=== PATIENT | female | born 1985 | race Caucasian/White ===

== ENCOUNTER → 2016-04-27 | Outpatient (CLI) | payer BC, OTHER ==
[~2016-04-27] MED LIST: IRON PO; MTR600X PO; MULT-506 PO; OXYC5TAB PO
== END | disposition home or self-care (01) ==
LOC: C.PAPS 14:45
PROVIDERS: ATTEND Obstetrics & Gynecology
DX: Z01.419 Encounter for gynecological examination (general) (routine) without abnormal findings (principal); N87.1 Moderate cervical dysplasia

== ENCOUNTER → 2017-05-05 | Outpatient (CLI) | payer OTHER | END | disposition home or self-care (01) | LOC: C.PAPS 15:03 | PROVIDERS: ATTEND Obstetrics & Gynecology | DX: Z01.419 Encounter for gynecological examination (general) (routine) without abnormal findings (principal) ==

== ENCOUNTER 2019-01-18 06:46 | Inpatient (IN) ==
--- NOTE | 2019-01-17 09:35 | Anesthesiology Consultation ---
Date of Service January 17, 2019 Assessment & Plan (1) Encounter for pre-operative examination: Per OB, no preop labs to be done at [facility]- ordered for AM DOS* Chart Review Chart Review: Acceptable Risk for Surgery (pending preop labs AM DOS) and Patient seen in Pre Admission Testing Teaching & Discussion Pre-Anesthesia Teaching/Discussion Notes: Instructed NPO after midnight before surgery,except medications with 15 cc of water. Medication instructions provided according to the [facility] guidelines. History Surgery Operation Date: 01/18/19 07:30 Proposed Procedures p Section in LD - Pearl Villareal MD, FACOG Height/Weight Height: 5 ft 6 in Weight: 82 kg Allergies Allergy/AdvReac Type Severity Reaction Status Date / Time Influenza Virus Vaccines Allergy Severe ANAPHYLAXIS Verified 01/17/19 08:48 Medications Home Medications Medication Instructions Recorded Confirmed Last Taken agoaxsmt-rae-Aa-FA 1 tab PO DAILY 11/14/18 01/17/19 1 Day Ago ~12/30/18 Past Medical History Medical History History of ovarian cyst Temporomandibular joint disorder rare locking Thyroid cyst under surveillance Exercise / Class Metabolic Activity III < 4 Walking/Shop/Light housework Past Family History Family History Other Thyroid disease Past Surgical History Surgical History History of adenoidectomy History of closed hip dislocation s/p manipulation under anesthesia History of low transverse section x2 S/P wisdom tooth extraction Status post colposcopy with cervical biopsy and ECC-8 years ago Status post myringotomy with tube placement of both ears Past Anesthesia History No Family Hx of Anesthesia Complications and Other c/s: 2006: 2/ failure to process- patient reports "high spinal" with SOB/trouble swallowing (did not happen with most recent c/s) c/s (repeat): 06/03/15: SAB at L3-L4 History of PONV No Hx of PONV and No Hx of Motion Sickness Social History Smoking Status: Never smoker Do You Dip or Chew Tobacco: No Smoking End Date: Quit 5 years ago Hx Alcohol Use: No Hx Substance Use: No substance use type: does not use Review of Systems related reflux. Patient denies chest pain, shortness of breath, dyspnea on exertion, cough, wheezing, palpitations. Physical Exam Vital Signs VITALS BP 98/65 (per patient, BP typically in the lower-normal range) P 79 TEMP 998.7 SP02 97%RA RESP 16 PHYSICAL Full neck and c-spine range of motion. Full TMJ range of motion. TMD __ finger breaths Mallampati Score ___ Dentition: intact Lungs: clear throughout to auscultation Cardiac: regular rate and rhythm, no murmurs noted Spine: normal Carotid arteries: negative bruit Extremities: no edema Testing Laboratory Results 10/18/18 H/H 11.0/32.7 06/20/18 T&S A+Ab-
--- NOTE | 2019-01-17 17:46 | History & Physical Report ---
Date of Service January 17, 2019 Assessment & Plan (1) Cervical dysplasia: repeat pap smear in May 2019 last pap was negative Present on Admission?: No (2) Encounter for supervision of normal in multigravida: complicated by prior C/S X2 unwanted fertility Present on Admission?: Yes (3) H/O section: patient presents for repeat & bilateral tubal ligation at 39 weeks gestation. The procedures & their risks were reviewed with the patient & her & all questions were answered to their satisfaction. Present on Admission?: Yes History of Present Illness Chief Complaint: Patient is a 33 yo white female EDC 01/24/19 who presents at 39 weeks for repeat C/S and bilateral tubal ligation. First C/S was done for failure to progress, last she elected to have repeat C/S. now requesting tubal ligation with this C/S for unwanted fertility & multparity. GBS -negative A(+) Rubella Immune HIV/RPR/HepB-negative anatomy scan complete & normal glucolas-normal low risk panorama-boy GC/chlam-not detected Primary Care Provider: Nupur Lopez MD Allergies Allergy/AdvReac Type Severity Reaction Status Date / Time Influenza Virus Vaccines Allergy Severe ANAPHYLAXIS Verified 01/17/19 08:48 Home Medications Home Medications Medication Instructions Recorded Confirmed Type izdlrhrs-jri-Sh-FA 1 tab PO DAILY 11/14/18 01/17/19 History Patient History Medical History History of ovarian cyst Temporomandibular joint disorder rare locking Thyroid cyst under surveillance Surgical History History of adenoidectomy History of closed hip dislocation s/p manipulation under anesthesia History of low transverse section x2 S/P wisdom tooth extraction Status post colposcopy with cervical biopsy and ECC-8 years ago Status post myringotomy with tube placement of both ears Family History Other Thyroid disease Social History Preferred Language: Ukrainian Communication Ability: Effective Prison Officer Required: No Beliefs That Will Affect Care: None marital status: Current Living Situation: Spouse Current Living Situation Comment: 3 year old, 13 year old sons current occupational status: employed current occupation: [employer] [facility] Feels Safe at Home: Yes Smoking Status: Never smoker Second Hand Exposure: No ; Hx Alcohol Use: No Hx Substance Use: No Review of Systems All systems reviewed & are unremarkable except as noted in HPI & below Physical Exam Constitutional: WD/WN, vitals as above Respiratory: normal respiratory effort, lungs clear to auscultation Cardiovascular: RRR, no murmur, no edema Extremities: no calf tenderness and no edema Gastrointestinal (Abdomen): normal bowel sounds, soft, nontender, no hepatosplenomegaly Inspection/Auscultation: + abdominal surgical scar (well healed low transverse scar) Psychiatric: A+Ox3, euthymic affect Genitourinary: OB Exam Abdomen: + fundal height (37), + heart tones (140 bpm), + vertex and + estimated weight (7-8 pounds) cervical exam declined
[~2019-01-18 06:46] MED LIST changes: +CEFAZOLIN 2000MG 2,000 MG/15 ML SYR IV SCH; +CITRIC ACID/SODIUM CITRATE 15 ML UDC PO SCH; -IRON PO; -MTR600X PO; -MULT-506 PO; -OXYC5TAB PO
[2019-01-18] MEDS ORDERED: LACTATED RINGER'S 1,000 ML IV SCH ×3 (07:30→20:00)
[2019-01-18 07:33] LABS: Basophils # (auto) 0.03 K/uL (0-0.2); Basophils % (auto) 0.5 %; Eosinophils # (auto) 0.06 K/uL (0-0.5); Hematocrit (blood only) 32.5 % (37-47); Hemoglobin 10.8 g/dL (12.0-16.0); Immature Granulocytes # (auto) 0.02 K/uL (0.00-0.02); Immature Granulocytes % (auto) 0.3 %; Lymphocytes # (auto) 1.79 K/uL (1.2-3.4); Lymphocytes % (auto) 30.7 %; Mean Corpuscular Hemoglobin 29.9 pg (25-34); Mean Platelet Volume 9.9 fL (7.4-10.4); Monocytes # (auto) 0.45 K/uL (0.11-0.59); Monocytes % (auto) 7.7 %; Neutrophils # (auto) 3.49 K/uL (1.4-6.5); Neutrophils % (auto) 59.8 %; Platelet Count 175 K/uL (130-400); RDW Coefficient of Variation 12.7 % (11.5-14.5); RDW Standard Deviation 41.4 fL (36.4-46.3); Red Blood Count 3.61 M/uL (4.2-5.4); White Blood Count 5.84 K/uL (4.8-10.8)
[2019-01-18 07:38] LABS: Mean Corpuscular Hgb Conc 33.2 g/dL (32-36)
[2019-01-18] MEDS ORDERED: OXYTOCIN 10 UNITS/ML VIAL ONE (08:50)
[2019-01-18] MEDS ORDERED: ONDANSETRON INJ 2 MG/ML 2 ML VIAL ONE (08:50)
[2019-01-18] MEDS ORDERED: fentaNYL citrate 100 MCG/2 ML VIAL ONE (08:51)
[2019-01-18] MEDS ORDERED: MoRPHine SULFATE PF 1 MG/ML 10 ML AMP/VIAL ONE (08:51)
[2019-01-18] MEDS ORDERED: PHENYLEPHRINE 100MCG/ML 5ML SYR ONE (10:43)
[2019-01-18] MEDS ORDERED: DiphenhydrAMINE HCL 50 MG/ML VIAL ONE (11:05)
[2019-01-18] MEDS ORDERED: ONDANSETRON INJ 2 MG/ML 2 ML VIAL IV PRN (11:17)
[2019-01-18] MEDS ORDERED: NALOXONE HCL 1 MG in SODIUM CHLORIDE 0.9% 1000ML 1,000 ML IV PRN (11:17)
[2019-01-18] MEDS ORDERED: NALOXONE HCL 0.4 MG/1 ML VIAL/CARP IV PRN (11:17)
[2019-01-18] MEDS ORDERED: DiphenhydrAMINE HCL 50 MG/ML VIAL IV PRN (11:17)
[2019-01-18] MEDS ORDERED: MoRPHine SULFATE PF 1 MG/ML 10 ML AMP/VIAL INT SPINAL ONE (11:17)
[2019-01-18] MEDS ORDERED: HYDROmorphone INJ 0.5 MG/0.5 ML SYR IV PRN (11:17)
[2019-01-18] MEDS ORDERED: NALBUPHINE HCL INJ 10 MG/ML AMP IV PRN (11:17)
[2019-01-18] MEDS ORDERED: ePHEDrine sulfate 50 MG/ML AMP IV PRN (11:17)
[2019-01-18] MEDS ORDERED: LACTATED RINGER'S 500 ML IV PRN (11:17)
[2019-01-18] MEDS ORDERED: NALOXONE HCL 0.08 MG in SYRINGE 1.8 ML IV PRN (11:17)
[2019-01-18] MEDS ORDERED: KETOROLAC 30 MG/ML VIAL IV PRN (11:17)
[2019-01-18] MEDS ORDERED: SUPERCREAM 0.870% 15 GM JAR EXT PRN (11:18)
[2019-01-18] MEDS ORDERED: MAGNESIUM HYDROXIDE SUSP 30 ML UDC PO PRN (11:18)
[2019-01-18] MEDS ORDERED: SENNA 8.6 MG TAB PO PRN (11:18)
[2019-01-18] MEDS ORDERED: HYDROCORTISONE ACETATE 25 MG SUPP PR PRN (11:18)
[2019-01-18] MEDS ORDERED: DIPHTHERIA/TETANUS/PERTUSSIS 0.5 ML SYR/VIAL IM ONE (11:18)
[2019-01-18] MEDS ORDERED: BENZOCAINE 20% AER SPR 82.5 GM CAN EXT PRN (11:18)
--- NOTE | 2019-01-18 11:28 | Post Operative Brief Note ---
PG Immediate Post Op with CF Date of Surgery January 18, 2019 Pre & Post Diagnosis Operation Date: 01/18/19 08:50 Pre-Op Diagnosis: History of Section, Desires sterilization Post-Op Diagnosis: History of Section, Desires sterilization; low transverse section; bilateral tubal ligation; delivery of live male child at 1048 I identified the patient and participated in the time-out.: Yes Procedure Operation Date: 01/18/19 08:50 Actual Procedures p Section in LD(Bilateral) - Pearl Villareal MD, FACOG s Post Tubal Ligation Labor & Deliv - Pearl Villareal MD, FACOG Surgeon Pearl Villareal MD, FACOG Pedigree Tracer Latrice Puentes MD, Mikal Pierce PGY-1 Estimated Blood Loss 600 Findings Consistent with Post-Op Diagnosis Specimens Specimen Description: a. placenta-hold b. cord blood c. portion of right fallopian tube d. portion of left fallopian tube Drains Dowell Catheter (inserted after spinal with return of clear yellow urine)
[2019-01-18] MEDS ORDERED: DC INTRASPINAL MORPHINE SCH (11:30)
[2019-01-18] MEDS ORDERED: SODIUM CHLORIDE 0.9% 1000ML 1,000 ML IV SCH (11:30)
[2019-01-18] MEDS ORDERED: NO NARCOTICS OR SEDATIVES SCH (11:30)
[2019-01-18] MEDS ORDERED: OXYTOCIN 20 UNITS in LACTATED RINGER'S 1,000 ML IV SCH (11:30)
[2019-01-18] MEDS: OXYTOCIN 20 UNITS in LACTATED RINGER'S 1,000 ML IV SCH ×2 (12:34→20:47)
[2019-01-18] MEDS: SIMETHICONE 80 MG CHEW PO SCH ×3 (14:25→20:48)
--- NOTE | 2019-01-18 14:49 | Anesthesiology Progress Note ---
Date of Service January 18, 2019 Anesthesia Post Procedure Vital Signs Vital Signs: Temp Pulse Pulse Resp BP BP Pulse Ox 01/18/19 14:15 36.5 C 66 18 95/59 L 99 01/18/19 13:59 94 H 96 01/18/19 13:54 64 99 01/18/19 13:52 36.6 C 16 01/18/19 13:49 69 97 01/18/19 13:44 72 98 01/18/19 13:40 64 110/57 L 01/18/19 13:39 69 99 01/18/19 13:34 81 98 01/18/19 13:30 63 20 109/56 L 01/18/19 13:29 65 100 01/18/19 13:24 71 99 01/18/19 13:21 93 H 141/60 H 01/18/19 13:19 102 H 98 01/18/19 13:14 56 L 98 01/18/19 13:11 62 126/58 L 01/18/19 13:09 64 99 01/18/19 13:05 16 01/18/19 13:04 68 95 01/18/19 13:00 81 111/63 01/18/19 12:59 85 97 01/18/19 12:54 64 99 01/18/19 12:52 59 L 104/59 L 01/18/19 12:49 67 98 01/18/19 12:44 63 99 01/18/19 12:41 57 L 107/60 01/18/19 12:39 68 96 01/18/19 12:35 36.4 C L 16 01/18/19 12:34 60 97 01/18/19 12:30 55 L 89/51 L 01/18/19 12:29 60 97 01/18/19 12:25 16 01/18/19 12:24 70 91 01/18/19 12:20 54 L 92/54 L 01/18/19 12:19 53 L 95 01/18/19 12:15 36.5 C 16 01/18/19 12:14 71 95 01/18/19 12:11 59 L 92/52 L 01/18/19 12:10 58 L 87/52 L 01/18/19 12:09 61 95 01/18/19 12:08 34.9 C L 16 01/18/19 12:05 16 01/18/19 12:04 66 97 01/18/19 12:00 62 93/51 L 01/18/19 11:59 66 95 01/18/19 11:58 73 93 01/18/19 11:55 18 01/18/19 11:54 71 98 01/18/19 11:50 67 96/56 L 01/18/19 11:49 60 99 01/18/19 11:45 18 01/18/19 11:44 81 98 01/18/19 11:39 75 97 01/18/19 11:35 57 L 96/52 L 01/18/19 11:34 62 98 01/18/19 07:07 36.8 C 18 01/18/19 07:00 75 115/69 Pain Intensity Bilateral Abdomen: Pain Intensity: 2 Transfer of Care Handoff Completed per policy Notes Mental Status: alert / awake / arousable and participated in evaluation Nausea / Vomiting: improving with treatment Pain: adequately controlled Airway Patency, RR, SpO2: stable & adequate BP & HR: stable & adequate Hydration State: stable & adequate Neuraxial Anesthesia: was administered and sensory block is resolving Anesthetic Complications: no major complications apparent and Pt Satisfied with anesthetic care
[2019-01-18] MEDS: DOCUSATE SODIUM 100 MG CAP PO SCH (20:48)
[2019-01-19] MEDS: IBUPROFEN 600 MG TAB PO PRN ×5 (03:48→20:18)
[2019-01-19] MEDS ORDERED: DiphenhydrAMINE HCL 50 MG/ML VIAL IV PRN (05:18)
[2019-01-19] MEDS ORDERED: PROMETHAZINE HCL 25 MG in SODIUM CHLORIDE 0.9% 50 ML IV PRN (05:18)
[2019-01-19] MEDS ORDERED: OXYCODONE/ACETAMINOPHEN 5mg/325mg TAB PO PRN (05:18)
[2019-01-19] MEDS ORDERED: MEPERIDINE HCL 50 MG/ML CARP IV PRN (05:18)
[2019-01-19] MEDS ORDERED: ONDANSETRON INJ 2 MG/ML 2 ML VIAL IV PRN (05:18)
[2019-01-19] MEDS ORDERED: KETOROLAC 30 MG/ML VIAL IV PRN (05:18)
--- NOTE | 2019-01-19 06:28 | Obstetrical Progress Note ---
Date of Service January 19, 2019 Assessment & Plan (1) : Ally Castillo is a 33 yo s/p r C/S w/ T/L @ 39w2d -POD# 1 - GBS negative, Blood Type A+ - Feels well today. Eating well, voiding well, ambulating well. - Pain well controlled. - Routine post operative care - After discharge will have [address] Villareal. Supervising Physician Co-Signing Physician Notes Resident Physician Supervision Note: I was present with Dr. Pierce during the history and exam. I discussed the case with the resident and agree with the findings and plan as documented in the note. Any exceptions or clarifications are listed here: [None] Documented By: Pearl Villareal MD, FACOG Subjective Doing well this morning, noticed some slight right shoulder pain. is going well. Bleeding is moderate. Review of Systems Review of Systems: Denies fever, chills, sweats Denies shortness of breath, difficulty breathing, chest pain, palpitations, chest pressure. Denies breast pain. Denies dysuria. Denies headache. Physical Exam Physical Exam: General: Alert, oriented. No acute distress. Cardiac: Regular rate and rhythm, no murmurs/rubs/gallops. Respiratory: Clear to auscultation anterior and posteriorly, no wheezes/rales/rhonchi. No increased work of breathing. Symmetrical chest rise. No respiratory distress. Abdomen: Soft, nontender, nondistended. Bowel sounds present. Uterus: Uterine fundus firm, palpable 1 cm below umbilicus. Lower Extremities: No lower extremity edema or swelling. No deep calf pain. Lamar's negative bilaterally. Results & Data Vital Signs (Past 12 Hours) Vital Signs Temp Pulse Resp BP Pulse Ox 01/19/19 04:45 36.8 C 70 16 95/55 L 97 01/19/19 03:40 16 97 01/19/19 02:27 16 96 01/19/19 01:36 16 99 01/19/19 00:39 14 96 01/18/19 23:05 37 C 76 16 98/57 L 99 01/18/19 22:40 16 99 01/18/19 21:40 14 95 01/18/19 20:40 16 96 01/18/19 19:50 36.9 C 65 16 103/60 97 PG Care Time/CCT Total # of Minutes Spent Total Time Spent with Patient: Total time spent is greater than 50% in coordination of care (as documented) at patient's floor/unit and/or counseling patient: Resident Activity Tracking Resident Involvement: Resident Care Provided Care Provided: Adult Hospital Medicine
[2019-01-19 06:43] LABS: Basophils # (auto) 0.02 K/uL (0-0.2); Basophils % (auto) 0.2 %; Eosinophils # (auto) 0.05 K/uL (0-0.5); Eosinophils % (auto) 0.5 %; Hematocrit (blood only) 29.7 % (37-47); Hemoglobin 9.9 g/dL (12.0-16.0); Immature Granulocytes # (auto) 0.03 K/uL (0.00-0.02); Immature Granulocytes % (auto) 0.3 %; Lymphocytes # (auto) 1.73 K/uL (1.2-3.4); Lymphocytes % (auto) 18.2 %; Mean Corpuscular Hemoglobin 30.1 pg (25-34); Mean Corpuscular Hgb Conc 33.3 g/dL (32-36); Mean Corpuscular Volume 90.3 fL (80-100); Mean Platelet Volume 10.1 fL (7.4-10.4); Monocytes # (auto) 0.87 K/uL (0.11-0.59); Monocytes % (auto) 9.2 %; Neutrophils # (auto) 6.79 K/uL (1.4-6.5); Neutrophils % (auto) 71.6 %; Platelet Count 191 K/uL (130-400); RDW Coefficient of Variation 12.7 % (11.5-14.5); RDW Standard Deviation 41.8 fL (36.4-46.3); Red Blood Count 3.29 M/uL (4.2-5.4); White Blood Count 9.49 K/uL (4.8-10.8)
[2019-01-19] MEDS: SIMETHICONE 80 MG CHEW PO SCH ×4 (08:10→20:18)
[2019-01-19] MEDS: FERROUS SULFATE 325 MG TAB PO SCH (08:11)
[2019-01-19] MEDS: DOCUSATE SODIUM 100 MG CAP PO SCH ×2 (08:11→20:19)
[2019-01-19] MEDS: PRENATAL VITAMIN 1 TAB PO SCH (08:11)
--- NOTE | 2019-01-19 10:38 | Anesthesiology Progress Note ---
Date of Service January 19, 2019 Anesthesia Post Procedure Vital Signs Vital Signs: Temp Pulse Pulse Pulse Resp BP BP 01/19/19 07:40 98.6 F 67 16 91/53 L 01/19/19 04:45 98.2 F 70 16 95/55 L 01/19/19 03:40 16 01/19/19 02:27 16 01/19/19 01:36 16 01/19/19 00:39 14 01/18/19 23:05 98.6 F 76 16 98/57 L 01/18/19 22:40 16 01/18/19 21:40 14 01/18/19 20:40 16 01/18/19 19:50 98.4 F 65 16 103/60 01/18/19 18:00 20 01/18/19 17:00 20 01/18/19 16:30 19 01/18/19 15:30 97.3 F L 87 20 97/64 L 01/18/19 14:15 97.7 F 66 18 95/59 L 01/18/19 13:59 94 H 01/18/19 13:54 64 01/18/19 13:52 97.9 F 16 01/18/19 13:49 69 01/18/19 13:44 72 01/18/19 13:40 64 110/57 L 01/18/19 13:39 69 01/18/19 13:34 81 01/18/19 13:30 63 20 109/56 L 01/18/19 13:29 65 01/18/19 13:24 71 01/18/19 13:21 93 H 141/60 H 01/18/19 13:19 102 H 01/18/19 13:14 56 L 01/18/19 13:11 62 126/58 L 01/18/19 13:09 64 01/18/19 13:05 16 01/18/19 13:04 68 01/18/19 13:00 81 111/63 01/18/19 12:59 85 01/18/19 12:54 64 01/18/19 12:52 59 L 104/59 L 01/18/19 12:49 67 01/18/19 12:44 63 01/18/19 12:41 57 L 107/60 01/18/19 12:39 68 01/18/19 12:35 97.5 F L 16 01/18/19 12:34 60 01/18/19 12:30 55 L 89/51 L 01/18/19 12:29 60 01/18/19 12:25 16 01/18/19 12:24 70 01/18/19 12:20 54 L 92/54 L 01/18/19 12:19 53 L 01/18/19 12:15 97.7 F 16 01/18/19 12:14 71 01/18/19 12:11 59 L 92/52 L 01/18/19 12:10 58 L 87/52 L 01/18/19 12:09 61 01/18/19 12:08 94.8 F L 16 01/18/19 12:05 16 01/18/19 12:04 66 01/18/19 12:00 62 93/51 L 01/18/19 11:59 66 01/18/19 11:58 73 01/18/19 11:55 18 01/18/19 11:54 71 01/18/19 11:50 67 96/56 L 01/18/19 11:49 60 01/18/19 11:45 18 01/18/19 11:44 81 01/18/19 11:39 75 01/18/19 11:35 57 L 96/52 L 01/18/19 11:34 62 Pulse Ox Pulse Ox 01/19/19 07:40 97 01/19/19 04:45 97 01/19/19 03:40 97 01/19/19 02:27 96 01/19/19 01:36 99 01/19/19 00:39 96 01/18/19 23:05 99 01/18/19 22:40 99 01/18/19 21:40 95 01/18/19 20:40 96 01/18/19 19:50 97 01/18/19 18:00 98 01/18/19 17:00 99 01/18/19 16:30 97 01/18/19 15:30 97 97 01/18/19 14:15 99 01/18/19 13:59 96 01/18/19 13:54 99 01/18/19 13:52 01/18/19 13:49 97 01/18/19 13:44 98 01/18/19 13:40 01/18/19 13:39 99 01/18/19 13:34 98 01/18/19 13:30 01/18/19 13:29 100 01/18/19 13:24 99 01/18/19 13:21 01/18/19 13:19 98 01/18/19 13:14 98 01/18/19 13:11 01/18/19 13:09 99 01/18/19 13:05 01/18/19 13:04 95 01/18/19 13:00 01/18/19 12:59 97 01/18/19 12:54 99 01/18/19 12:52 01/18/19 12:49 98 01/18/19 12:44 99 01/18/19 12:41 01/18/19 12:39 96 01/18/19 12:35 01/18/19 12:34 97 01/18/19 12:30 01/18/19 12:29 97 01/18/19 12:25 01/18/19 12:24 91 01/18/19 12:20 01/18/19 12:19 95 01/18/19 12:15 01/18/19 12:14 95 01/18/19 12:11 01/18/19 12:10 01/18/19 12:09 95 01/18/19 12:08 01/18/19 12:05 01/18/19 12:04 97 01/18/19 12:00 01/18/19 11:59 95 01/18/19 11:58 93 01/18/19 11:55 01/18/19 11:54 98 01/18/19 11:50 01/18/19 11:49 99 01/18/19 11:45 01/18/19 11:44 98 01/18/19 11:39 97 01/18/19 11:35 01/18/19 11:34 98 Pain Intensity Bilateral Abdomen: Pain Intensity: 2 Transfer of Care Handoff Completed per policy Notes Mental Status: alert / awake / arousable and participated in evaluation Nausea / Vomiting: adequately controlled Pain: adequately controlled Airway Patency, RR, SpO2: stable & adequate BP & HR: stable & adequate Hydration State: stable & adequate Neuraxial Anesthesia: was administered and sensory block resolved Anesthetic Complications: no major complications apparent and Pt Satisfied with anesthetic care Notes: Pt states pruritus that is improving. The pt offered no other complaints.
[2019-01-19] MEDS: ACETAMINOPHEN 325 MG TAB PO PRN ×3 (11:04→23:30)
[2019-01-19] MEDS ORDERED: bisacodyL 5 MG TABEC PO SCH (20:00)
[2019-01-20] MEDS: IBUPROFEN 600 MG TAB PO PRN ×2 (02:19→06:10)
[2019-01-20] MEDS: ACETAMINOPHEN 325 MG TAB PO PRN (04:40)
[2019-01-20 06:32] LABS: Hematocrit (blood only) 28.7 % (37-47); Hemoglobin 9.5 g/dL (12.0-16.0)
--- NOTE | 2019-01-20 08:13 | Obstetrical Progress Note ---
Date of Service January 20, 2019 Assessment & Plan (1) Status post tubal ligation: (2) delivery delivered: doing well, ready for discharge. instructions reviewed. has check in 6wks. instructions reviewed. discussed small amount percocet to be given in script in case needs. breast feeding, rhpos. Day #:: 2 Subjective Ambulation: ambulating normally Voiding: no voiding problems Passing Gas:: Yes Diet Tolerance:: regular diet Lochia:: Small Feeding Type:: breast feeding no pain issues, only using tylenol and motrin for her pain Physical Exam Constitutional WD/WN, vitals as above Respiratory normal respiratory effort, lungs clear to auscultation Cardiovascular Rate/Rhythm: regular rate and regular rhythm Gastrointestinal (Abdomen) Inspection/Auscultation: abdomen normal to inspection Percussion/Palpation: abdomen soft fundus firm 2 cm below umbilicus, incision c/d/i with dermabond Musculoskeletal nt calves tr edema Neurologic grossly normal Psychiatric A+Ox3, euthymic affect Results & Data Vital Signs (Past 12 Hours) Vital Signs Temp Pulse Resp BP Pulse Ox 01/19/19 23:35 97.5 F L 63 18 94/59 L 01/19/19 20:10 97.9 F 68 18 97/65 L 98
[2019-01-20] MEDS: FERROUS SULFATE 325 MG TAB PO SCH (08:26)
[2019-01-20] MEDS: DOCUSATE SODIUM 100 MG CAP PO SCH (08:26)
[2019-01-20] MEDS: PRENATAL VITAMIN 1 TAB PO SCH (08:31)
[2019-01-20] MEDS: SIMETHICONE 80 MG CHEW PO SCH (08:31)
[2019-01-20] MEDS ORDERED: bisacodyL 10 MG SUPP PR PRN (11:18)
--- NOTE | 2019-01-21 13:55 | Operative Report ---
DATE OF OPERATION: 01/18/2019 DATE OF DELIVERY: 01/18/2019 SURGEON: Dr. Pearl Mcintosh. METAL FABRICATING INSPECTOR: Dr. Latrice Puentes and Dr. Mikal Pierce, PGY-1. PREOPERATIVE DIAGNOSES: Intrauterine at term, prior section x2, requesting repeat section and unwanted fertility. POSTOPERATIVE DIAGNOSES: Intrauterine at term, prior section x2, requesting repeat section and unwanted fertility, delivery of a viable , Apgars 8 and 9. PROCEDURE: Repeat low transverse section and bilateral modified [place] tubal ligation. HISTORY: The patient is a 33-year-old 3, para 2-0-0-2, white female, EDC of 01/24/2019, who presented at 39 weeks for repeat section and bilateral tubal ligation. Her original was done for failure to progress. She had a repeat section last and therefore she will have a repeat section for this delivery. She is requesting tubal ligation done with the section because of multiparity and unwanted fertility. She understands the risks for these procedures including the risk for future pregnancies, both ectopic and intrauterine and she is willing to proceed. GROSS FINDINGS: Uterus is gravid and consistent with a term in size. Bilateral ovaries and fallopian tubes are grossly normal. DESCRIPTION OF PROCEDURE: After the patient received adequate subarachnoid block, she was prepped and draped in usual sterile fashion. A low transverse skin incision was made through her prior scar and carried the fascia with the same scalpel. The fascial incision was then extended with Cason scissors and the underlying rectus muscles were bluntly and sharply dissected off of the overlying fascia. The rectus muscles were bluntly divided along the midline and the underlying peritoneum elevated and entered sharply. The bladder was then taken down off the anterior surface of the uterus and placed behind the bladder blade. Lower uterine segment was entered with the scalpel and extended transversely. Membranes were ruptured for clear fluid. The infant was delivered from the vertex presentation with moderate fundal pressure. Mouth and nasopharynx were suctioned on delivery. There was a triple nuchal cord that was reduced after delivering the head. The rest of the delivered easily and there was vigorous crying and the was moving all 4 limbs. The cord was clamped and cut and the was handed off to Dr. Pérez who was attendance as grounds cleaner. The placenta was expressed intact with a 3-vessel cord. The uterus was exteriorized and covered with a clean lap sponge. The placental cavity was then explored and found to be free of any placental tissue or membranes. The uterus was closed in 2 layers in a running locking imbricating fashion. Bleeding along the incision was then controlled with the Bovie as well. The tubal ligation was then performed. The right fallopian tube was identified and followed to its fimbriated end. A knuckle of tube was developed with a Raj clamp. A tie of 3-0 plain catgut was used to create the knuckle of tube. A second suture ligature of the 3-0 plain catgut was used to reinforce the first. The knuckle of tube was then removed and the ends of the remaining tube were cauterized. The left fallopian tube was then identified and followed to its fimbriated end. It was grasped in the mid portion with a [place] clamp. Knuckle of tube was developed with a tie of 3-0 plain catgut followed by suture ligature of the same. The knuckle of tube was then removed and the ends of the tube were cauterized with the Bovie. Hemostasis was noted to be excellent at the tubal sites and at the uterine incision. The posterior cul-de-sac was irrigated with normal saline. The uterus was then gently placed back in the abdominal cavity. The uterine incision and tubal ligation sites were examined once more and continued to have excellent hemostasis. The rectus muscles were then brought together in the midline with individual stitches of 0 Monocryl. The fascia was closed in a running fashion with 0 Vicryl. Skin edges were reapproximated using a subcuticular stitch of 4-0 Vicryl. Urine was clear at the end of the case. The patient tolerated the procedure well and was stable upon arrival back in her labor and delivery room. I attest to the content of the Intraoperative Record and any orders documented therein. Any exception s are noted below.
--- NOTE | 2019-01-22 21:57 | Discharge Summary ---
PRINCIPAL DIAGNOSES: Intrauterine at 39 weeks, prior section x2, repeat section and unwanted fertility. PRINCIPAL PROCEDURE: Repeat low transverse section and bilateral modified [place] tubal ligation. HISTORY AND HOSPITAL COURSE: The patient is a 33-year-old 3, para 2-0-0-2, white female, EDC of 01/24/2019, who presented at 39 weeks for repeat and bilateral tubal ligation. This was done without any complications. She had an uncomplicated postop course except for nausea and vomiting on the night of her surgery. Following this, she was able to tolerated regular diet, ambulate & void without difficulty. She remained afebrile throughout her hospital stay. Hemoglobin on admission was 10.8, hematocrit of 32.5; first postop day hemoglobin 9.9, hematocrit 29.7; second postop day hemoglobin 9.5, hematocrit 28.7. She was sent home in good condition with usual instructions, both postoperatively and . She is to call for temperature of 101 degrees or higher, heavy vaginal bleeding, burning with urination, increased redness, drainage or pain in her incision, fever of 101 degrees or higher, or any other concerns. OMAR
== END 2019-01-20 10:13 | disposition home or self-care (01) | DRG 785 ==
LOC: 4S1 06:46 → EDSTATUS 07:30 → 4N 14:49 → 4S2 01-19 20:16
PROC: M.PPTLD (2019-01-18 08:50)